=== PATIENT | female | born 1970 | race Caucasian/White ===

== ENCOUNTER 2020-09-25 10:29 | Emergency (ER) | payer BC ==
[2020-09-25] MEDS ORDERED: ORPHENADRINE 30 MG/ML 2 ML VIAL IM STA (11:48)
[2020-09-25] MEDS ORDERED: KETOROLAC 15 MG/ML 1 ML VIAL IM STA (11:48)
--- NOTE | 2020-09-25 12:02 | ED ---
General Adult HPI - General Chief complaint: Back Pain/Injury Stated complaint: back pain Time Seen by Provider: 09/25/20 11:48 Source: patient Mode of arrival: ambulatory Limitations: no limitations - History of Present Illness Initial comments: 50-year-old female presents to the emergency room for a chief complaint of back pain. Patient states she has had back pain for about 2 days now. She says she injured her knee last week and thinks she has been walking differently which has caused back pain. Sates she cannot get comfortable but feels better with rest. States pain worsens significantly with movement. States she cannot bend over. States it does radiate down the right leg. Patient denies any bladder or bowel changes, saddle anesthesia, weakness of the lower extremities, or fever. - Related Data Previous Rx's Medication Instructions Recorded Cyclobenzaprine [Flexeril] 10 mg PO TID #10 tab 09/25/20 Allergies Allergy/AdvReac Type Severity Reaction Status Date / Time No Known Allergies Allergy Verified 09/25/20 10:35 Review of Systems ROS Statement: Those systems with pertinent positive or pertinent negative responses have been documented in the HPI. ROS Other: All systems not noted in ROS Statement are negative. Past Medical History Past Medical History: No Reported History History of Any Multi-Drug Resistant Organisms: None Reported Past Surgical History: No Surgical Hx Reported Additional Past Surgical History / Comment(s): wisdom teeth Past Psychological History: No Psychological Hx Reported Smoking Status: Former smoker Past Alcohol Use History: Occasional Past Drug Use History: None Reported General Exam Limitations: no limitations General appearance: alert, in no apparent distress Head exam: Present: atraumatic, normocephalic, normal inspection Eye exam: Present: normal appearance, PERRL, EOMI. Absent: scleral icterus, conjunctival injection, periorbital swelling ENT exam: Present: normal exam, mucous membranes moist Neck exam: Present: normal inspection, full ROM. Absent: tenderness, meningismus, lymphadenopathy Respiratory exam: Present: normal lung sounds bilaterally. Absent: respiratory distress, wheezes, rales, rhonchi, stridor Cardiovascular Exam: Present: regular rate, normal rhythm, normal heart sounds. Absent: systolic murmur, diastolic murmur, rubs, gallop, clicks GI/Abdominal exam: Present: soft, normal bowel sounds. Absent: distended, tenderness, guarding, rebound, rigid Extremities exam: Present: normal capillary refill (cap refill < 2 seconds, DP pulses 2+ BLE), other (strength 5/5 in BLE) Back exam: Present: paraspinal tenderness (Generalized bilateral lumbar paraspinal tenderness. Tenderness in the right upper buttock.). Absent: CVA tenderness (R), CVA tenderness (L), vertebral tenderness Course Vital Signs 09/25/20 10:32 Temperature 97.7 F Pulse Rate 100 Respiratory 18 Rate Blood Pressure 147/70 O2 Sat by Pulse 100 Oximetry Medical Decision Making - Medical Decision Making Vitals are stable. HPI and physical exam as documented. Consistent with musculoskeletal back pain. Patient given Toradol and Norflex. She did have significant improvement. Patient is agreeable to 1 more pain medicine and discharged. She will follow up with orthopedics. She'll return here for any red flag symptoms which were discussed with her and her . Disposition Clinical Impression: Mechanical back pain Disposition: HOME SELF-CARE Condition: Good Instructions (If sedation given, give patient instructions): Acute Low Back Pain (ED), Lower Back Exercises (ED) Additional Instructions: Please take Motrin and Tylenol for pain. He may alternate these every 3 hours. If pain is severe take a Tylenol 3 instead of a regular Tylenol. You may take muscle relaxer as directed as well. Do not drive or operate machinery if taking muscle relaxer or Tylenol 3. Follow up with orthopedics. If you have any worsening symptoms such as worsening pain, fevers, bladder or bowel changes, weakness of the lower extremities, or numbness in the saddle region return to the emergency room. Prescriptions: Cyclobenzaprine [Flexeril] 10 mg PO TID #10 tab Is patient prescribed a controlled substance at d/c from ED?: No Referrals: Goyo Mendes MD [Primary Care Provider] - 1-2 days Time of Disposition: 12:59
[2020-09-25] MEDS ORDERED: ONDANSETRON ODT 4 MG TAB PO STA (12:58)
[2020-09-25] MEDS ORDERED: ACET/COD 300 MG/30 MG STARTER PACK 6 TAB BTL PO STA (12:58)
[2020-09-25] MEDS ORDERED: MORPHINE SULFATE 4 MG/ML SYRINGE IM STA (12:58)
[2020-09-25 13:29] VITALS: BP 146/80; PULSE 92; RESP 16; TEMP 97.8
== END 2020-09-25 13:28 | disposition home or self-care (01) ==
LOC: EC 10:29
DX: M54.9 Dorsalgia, unspecified (principal); Z87.891 Personal history of nicotine dependence
CPT/HCPCS: 99283; 96372 ×3; J2270; J2360; J1885

== ENCOUNTER → 2021-01-03 | Outpatient (CLI) | payer BC ==
--- NOTE | 2021-01-04 09:24 | MM ---
Reason for exam: screening (asymptomatic). Baseline mammogram. Physical Findings: Nurse did not find any significant physical abnormalities on exam. MG Screening Mammo w CAD Bilateral CC and MLO view(s) were taken. There are scattered fibroglandular densities. ASSESSMENT: Negative, BI-RAD 1 RECOMMENDATION: Routine screening mammogram of both breasts in 1 year.
== END | disposition home or self-care (01) ==
LOC: RADMAMWWP 13:29
PROVIDERS: ATTEND Family Medicine
DX: Z12.31 Encounter for screening mammogram for malignant neoplasm of breast (principal)
CPT/HCPCS: 77067

== ENCOUNTER → 2023-06-25 | Outpatient (CLI) | payer OTHER ==
--- NOTE | 2023-06-25 12:47 | XR ---
EXAMINATION TYPE: XR lumbar spine 3V DATE OF EXAM: 06/25/2023 Comparison: None Clinical History: 52-year-old female S39.012A STRAIN OF MUSCLE, FASCIA AND TENDON OF LO Findings: 5 lumbar type vertebral bodies. Facet arthropathy lower lumbar spine. Mild degenerative disc disease near the thoracolumbar junction. Mild disc bulging L4-L5. More moderate degenerative disc disease L5- S1 with disc space narrowing and endplate sclerosis. Vertebral body heights are preserved and alignme nt is maintained. Bilaterally short devices noted on the lateral view. Impression: 1. No vertebral compression collapse or malalignment. 2. Hypertrophic facet arthropathy lower lumbar spine. 3. Diffuse disc bulge at L4-L5. Moderate degenerative disc disease L5-S1.
== END | disposition home or self-care (01) ==
LOC: RADXRMAIN 12:03
PROVIDERS: ATTEND Emergency Medicine
DX: S39.012A Strain of muscle, fascia and tendon of lower back, initial encounter (principal); M51.36 Other intervertebral disc degeneration, lumbar region; M47.816 Spondylosis without myelopathy or radiculopathy, lumbar region
CPT/HCPCS: 72100

== ENCOUNTER → 2023-07-11 | Outpatient (CLI) | payer BC ==
--- NOTE | 2023-07-11 11:06 | MM ---
Reason for Exam: Screening (asymptomatic). Last mammogram was performed 2 year(s) and 6 month(s) ago. Patient History: Menarche at age 15. First Full-Term at age 22. Patient has history of breast feeding. Last menstrual period: 04/24/2023 Risk Values: Eleni 5 year model risk: 0.9%. NCI Lifetime model risk: 8.0%. Prior Study Comparison: 01/03/2021 Bilateral Screening Mammogram, [facility]. Tissue Density: There are scattered fibroglandular densities. Findings: Analyzed By CAD. There is no suspicious group of microcalcifications or new suspicious mass. Overall Assessment: Negative, BI-RAD 1 Management: Screening Mammogram of both breasts in [address] [facility] will attempt to contact patient to return for supplemental views and ultrasound if indicated. Patient should continue monthly self-breast exams. A clinical breast exam by your physician is recommended on an annual basis. This exam should not preclude additional follow-up of suspicious palpable abnormalities. Note on Eleni scores and lifetime risk: 1. A Eleni score greater than 3% is considered moderate risk. If this is the case, consider specialist referral to assess eligibility for a risk reducing agent. 2. If overall lifetime risk for the development of breast cancer is 20% or higher, the patient may qualify for future screening with alternating mammogram and breast MRI. Electronically signed and approved by: Carlo Sylvester DO
== END | disposition home or self-care (01) ==
LOC: RADMAMWWP 07:31
PROVIDERS: ATTEND Family Medicine
DX: Z12.31 Encounter for screening mammogram for malignant neoplasm of breast (principal)
CPT/HCPCS: 77063; 77067

== ENCOUNTER → 2023-07-25 | Outpatient (CLI) | payer BC ==
--- NOTE | 2023-07-25 07:49 | US ---
EXAMINATION TYPE: US liver DATE OF EXAM: 07/25/2023 COMPARISON: NONE CLINICAL INDICATION: Female, 52 years old with history of R74.01 Elevation of levels of liver transam inase levels ; Elevated liver enzymes per patient. No other pain or symptoms. TECHNIQUE: Multiple sonographic images of the right upper quadrant are obtained. FINDINGS: EXAM MEASUREMENTS: Liver Length: 12.5 cm Gallbladder Wall: 0.3 cm CBD: 0.3 cm Right Kidney: 9.7 x 4.5 x 5.1 cm ELECTRIC ORGAN CHECKER NOTES:Limited due to overlying bowel gas and patient body habitus Pancreas: Obscured by bowel gas Liver: Increased echotexture without organizing fluid collection, dilated Dr. 6 6 fracture. Gallbladder: wnl Evidence for sonographic Dasilva's sign: No CBD: wnl Right Kidney: No hydronephrosis or masses seen as best visualized. IMPRESSION: 1. Hepatic steatosis. 2. No evidence for acute process.
== END | disposition home or self-care (01) ==
LOC: RADUSWWP 06:59
PROVIDERS: ATTEND Family Medicine
DX: R74.01 Elevation of levels of liver transaminase levels (principal); K76.0 Fatty (change of) liver, not elsewhere classified
CPT/HCPCS: 76705

== ENCOUNTER → 2023-12-12 | Outpatient (CLI) | payer BC ==
--- NOTE | 2023-12-18 12:00 | CT ---
EXAMINATION TYPE: CT foot RT wo con DATE OF EXAM: 12/12/2023 COMPARISON: No radiographic correlation available HISTORY: 53-year-old female M79.671 pain in rt foot TECHNIQUE: Contiguous axial scanning of the right without IV contrast. Coronal and sagittal reconstru ctions performed. CT DLP: 171.2 mGycm Automated exposure control for dose reduction was used. FINDINGS: There is underlying moderate degenerative change at the lateral aspect of the second TMT joint with j oint space narrowing, subchondral bony irregularity, spurring, and subchondral sclerosis. Some tiny p unctate loose bodies are also noted along the dorsal aspect of the TMT joint. Bony irregularity dorsa lly as some associated lucencies and fragmented appearance, axial images 34 through 36. Additional moderate degenerative change at the third TMT joint. Midfoot alignment is maintained. Small delineation of the Achilles tendon. The tibiotalar joint and subtalar joints are aligned. IMPRESSION: 1. 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 2. AT THE DORSAL MARGIN OF THE SECOND TMT JOINT, THERE ARE SOME ASSOCIATED LUCENCIES AND FRAGMENTED A PPEARANCE ALONG WITH PUNCTATE LOOSE BODIES. UNCLEAR IF THIS REPRESENTS CHRONICALLY FRAGMENTED SPURS O R SUBACUTE TO CHRONIC CHIP FRACTURES. CORRELATE TO TIME SINCE INJURY. A SUBACUTE TO CHRONIC INJURY IS FAVORED OVER AN ACUTE FRACTURE.
== END | disposition home or self-care (01) ==
LOC: RADCTMAIN 16:42
PROVIDERS: ATTEND Family Medicine
DX: M19.071 Primary osteoarthritis, right ankle and foot (principal)

== ENCOUNTER → 2024-12-30 | Outpatient (CLI) | payer OTHER ==
--- NOTE | 2024-12-30 16:34 | XR ---
EXAMINATION TYPE: XR knee complete 3 views LT, XR tibia fibula 2 views LT DATE OF EXAM: 12/30/2024 4:23 PM COMPARISON: None CLINICAL INDICATION: Female, 54 years old with history of S80.02XA, S80.12XA; PHH, pain after trip an d fall injury 12/24/2024. History of knee replacement 2 years ago. 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 The distal femoral and proximal tibial component s of the prosthesis appear well seated without periprosthetic fracture. Alignment grossly anatomic. T here is a small knee joint effusion which is nonspecific. Extensor mechanism appears intact. Left tibia/fibula: No acute fracture seen. Tiny posterior and plantar heel spur is incidentally noted. Ankle articulatio n appears grossly intact. IMPRESSION: 1. Left knee: Small knee joint effusion which is nonspecific. Otherwise, uncomplicated appearance to the left total knee arthroplasty. 2. Left tibia/fibula: No acute osseous abnormality seen. [facility], , 12/30/2024 4:32 PM
== END | disposition home or self-care (01) ==
LOC: RADXRMAIN 15:55
PROVIDERS: ATTEND Emergency Medicine
DX: S80.02XA Contusion of left knee, initial encounter (principal); S80.12XA Contusion of left lower leg, initial encounter; Z96.652 Presence of left artificial knee joint; M25.462 Effusion, left knee; W01.0XXA Fall on same level from slipping, tripping and stumbling without subsequent striking against object, initial encounter